=== PATIENT | male | born 1985 | race Two or more races ===

== ENCOUNTER 2023-11-27 08:11 | Outpatient (AMB) | payer OTHER, SELFPAY ==
--- NOTE | 2023-11-27 08:12 | MHC.OFFWIV ---
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 Reports that symptoms started 2 days ago. He has been using OTC remedies with some relief. Denies any sick contact. Denies any chronic medical conditions and denies taking medications. Review of Systems Const All systems reviewed & are unremarkable except as noted in HPI and below Physical Exam Vital Signs: Last Vital Signs Temp 99.1 F 11/27/23 08:14 Pulse 118 H 11/27/23 08:14 BP 110/88 11/27/23 08:14 Pulse Ox 96 11/27/23 08:14 Oxygen Delivery Method Room Air 11/27/23 08:14 BMI result Body Mass Index 33.6 Const General: no acute distress and ill appearing Orientation/consciousness: patient oriented x3 HEENT Head: Yes normocephalic Ears: external ears normal and TM's normal bilaterally General nose exam: No nasal discharge present and Abnormal mucous membranes and turbinates present pale Face and sinus: Yes sinuses nontender Mouth: moist mucous membranes Throat: Yes posterior oropharynx normal Resp Effort & Inspection: normal respiratory effort, able to speak in complete sentences and Actively coughing Auscultation: clear to auscultation bilaterally, no crackles, no rales, no rhonchi and no wheezes Cardio Rate: regular rate Rhythm: regular rhythm Neuro General: patient oriented x3 Assessment & Plan Assessment & Plan (1) Upper respiratory infection: Code(s): J06.9 - Acute upper respiratory infection, unspecified Qualifiers: URI type: acute nasopharyngitis (common cold) Qualified Code(s): J00 - Acute nasopharyngitis [common cold] Plan: - Rest and hydrate well with warm fluids - OTC cough/cold remedies - Acetaminophen for pain relief - RTC if not better. (2) Cough in adult: Code(s): R05.9 - Cough, unspecified Plan: - Rest and hydrate well with warm fluids - OTC cough/cold remedies - Acetaminophen for pain relief - RTC if not better. Plan - Rest and hydrate well with warm fluids - OTC cough/cold remedies - Acetaminophen for pain relief - RTC if not better. Orders: Orders SARS-CoV2/FLU/RSV Today R09.89 - Other specified symptoms and signs involving the circulatory and respiratory systems Medications: New acetaminophen 1,000 mg (2 x 500 mg) PO Q6H PRN 30 caps 0RF fever J00 - Acute nasopharyngitis [common cold] [id number] 5-10-100 mg/5 mL (Adult Robitussin Peak Cold M-S) 10 mL PO Q4H PRN 237 mL 0RF cold symptoms J00 - Acute nasopharyngitis [common cold], R05.9 - Cough, unspecified Coding Level of Care Code New Pt Level 3 (49142) Diagnoses Acute nasopharyngitis J00 URI type: acute nasopharyngitis (common cold) Cough in adult R05.9 Time Spent (min) 15
[2023-11-27 08:14] VITALS: BP 110/88; PULSE 118; TEMP 37.3; O2SAT 96; BMI 33.6
== END 2023-11-27 09:55 | disposition home or self-care (01) ==
PROVIDERS: PCP Hospitalist; Visit Provider Nurse Practitioner Family
DX: J00 Acute nasopharyngitis [common cold] (principal); R05.9 Cough, unspecified
CPT/HCPCS: 99203

== ENCOUNTER 2023-11-27 08:26 | Outpatient (REF) | payer OTHER, SELFPAY ==
[2023-11-27 13:36] LABS: Influenza A PCR POSITIVE (Negative); Influenza B PCR NEGATIVE (Negative); Resp Syncy Virus RNA Qual PCR NEGATIVE (Negative); SARS COV2 PCR INHOUSE NEGATIVE (Negative)
== END 2023-11-27 08:27 | disposition home or self-care (01) ==
LOC: HO.LAB 08:26
PROVIDERS: Visit Provider Nurse Practitioner Family
DX: R09.89 Other specified symptoms and signs involving the circulatory and respiratory systems (principal)
CPT/HCPCS: 0241U

== ENCOUNTER 2024-03-13 13:29 | Outpatient (AMB) | payer OTHER, SELFPAY ==
--- OUTSIDE RECORDS SUMMARY | 2024-03-13 13:30 | XMS_ITS | Continuity of Care Document ---
Author Organization [facility] ter Address [address] [place] [address]- Care Team Providers Care Hired Worker Name Role Phone Renuka Preston MD Primary Care Physician [phone] Encounter [facility] [place] Date(s): 01/09/21 - 03/15/[address] [address] Attending Physician: Spencer Rogers MD Admitting Physician: Spencer Rogers MD Referring Physician: Spencer Rogers MD Allergies, Adverse Reactions, Alerts Substance Reaction Severity Status NKA Active Immunizations Given and Recorded Vaccine Date Status Refusal Reason pneumococcal 23-valent vaccine 12/20/11 Given tetanus-diphtheria toxoids (Td) 12/19/11 Given Medications diclofenac sodium 50 mg oral delayed release tablet 1 tablet = 50 mg, By Mouth, 3 times a day, with food take x 10-14 days even if no pain, # 90 tablet, 1 Refills, Maintenance, 10/11/20 13:16:00 EST, [facility]/pharmacy #[id number], Partial fill upon patient request if the prescription is for a schedule II opioid... Start Date: 10/11/20 Stop Date: 12/10/20 Status: Ordered gabapentin 300 mg oral capsule See Instructions, 1 CAP PO HS X 3 DAYS, THEN 1 CAP BID X 3 DAYS, THEN 1 capsule By Mouth 3 times a day THEREAFTER, # 90 capsule, Refills 0, Tot. Refills 0, Maintenance, 11/30/20 11:11:00 EDT, Instructions Replace Required Details, Route to Pharmacy El... Start Date: 11/30/20 Status: Ordered Problem List Condition Effective Dates Status Health Status Inform ant Multiple fractures of ribs(Confirmed) 01/25/12 Active
--- OUTSIDE RECORDS SUMMARY | 2024-03-13 13:30 | XMS_ITS | Continuity of Care Document ---
Author Organization [facility] Address [address] [place] [address]- Care Team Providers Care Accountant Assistant Name Role Phone Renuka Preston MD Primary Care Physician [place] [facility] [place]17[place] - 12/17/[address] [address] Attending Physician: Alma Rosa Burnham Admitting Physician: Alma Rosa Burnham Referring Physician: AdmtrAlma Rosa Allergies, Adverse Reactions, Alerts Substance Reaction Severity [...] tablet, 1 Refills, Maintenance, 10/11/20 13:16:00 EST, [facility]/pharmacy #[id number], Partial fill upon patient request [...]
--- OUTSIDE RECORDS SUMMARY | 2024-03-13 13:30 | XMS_ITS | Continuity of Care Document ---
Author Organization [facility] Address [address] [place] [address]- Care Team Providers Care Manager Hris Name Role Phone Renuka Preston MD Primary Care Physician [place] [facility] [place] Date(s): 02/09/21 - 03/11/21 [facility] [address] [place] [address] Attending Physician: Alma Rosa Burnham Admitting Physician: Alma Rosa Burnham Referring Physician: Alma Rosa Burnham Allergies, Adverse Reactions, Alerts Substance Reaction Severity [...] tablet, 1 Refills, Maintenance, 10/11/20 13:16:00 EST, [facility]/pharmacy #[id number], Partial fill upon patient request if [...]
--- OUTSIDE RECORDS SUMMARY | 2024-03-13 13:30 | XMS_ITS | Continuity of Care Document ---
Author Organization [facility] Address [address] [place] [address]- Care Team Providers Care Ticker Maintainer Name Role Phone Renuka Preston MD Primary Care Physician [phone] Encounter [facility] [place] Date(s): 04/14/20 - 05/14/20 [facility] [address] [place] [address]- [facility] Allergies, Adverse Reactions, Alerts Substance Reaction Severity Status NKA Active Immunizations Given and Recorded Vaccine Date Status Refusal Reason pneumococcal 23-valent vaccine 12/20/11 Given tetanus-diphtheria toxoids (Td) 12/19/11 Given Medications acetaminophen 650 mg oral tablet 1 tablet = 650 mg, By Mouth, Every 4 hours, # 84 tablet, 0 Refills, Maintenance, Tablet Start Date: 12/23/11 Stop Date: 01/06/12 Status: Ordered Compression Stockings See Instructions, # 2 each, Maintenance, surgical, thigh high length 30/40 mm Hg, 04/14/20 13:44:00EDT, Supply Start Date: 04/14/20 Status: Ordered docusate sodium 100 mg oral capsule 1 capsule = 100 mg, By Mouth, 2 times a day, # 60 capsule, 0 Refills, Maintenance, Capsule Start Date: 12/23/11 Status: Ordered gabapentin 600 mg oral tablet 1 tablet = 600 mg, By Mouth, 3 times a day, # 270 tablet, 1 Refills, Maintenance, Tablet Start Date: 02/21/12 Status: Ordered ibuprofen 600 mg oral tablet 1 tablet = 600 mg, By Mouth, 4 times a day, PRN Pain, # 40 tablet, 0 Refills, Maintenance Start Date: 01/15/12 Status: Ordered Problem List Condition Effective Dates Status Health Status Inform ant Multiple fractures of ribs(Confirmed) 01/25/12 Active
--- OUTSIDE RECORDS SUMMARY | 2024-03-13 13:30 | XMS_ITS | Continuity of Care Document ---
Author Organization [facility] Address [address] [place] [address]- Care Team Providers Care Channel Process Plant Operator Name Role Phone Renuka Preston MD Primary Care Physician [phone] [place] [facility] [place] Date(s): 11/30/20 - 12/30/20 [facility] [address] [place] [address]- Allergies, Adverse Reactions, Alerts Substance Reaction Severity [...] tablet, 1 Refills, Maintenance, 10/11/20 13:16:00 EST, [facility]/pharmacy #[id number], Partial fill upon patient [...]
--- OUTSIDE RECORDS SUMMARY | 2024-03-13 13:30 | XMS_ITS | Continuity of Care Document ---
Author Organization [facility] Address [address] [place] [address]- Care Team Providers Care Road Roller Operator Name Role Phone Renuka Preston MD Primary Care Physician [place] [facility] [place]): [place]11[place]20 - 11/10/20 [facility] [address] [place] [address]- Attending Physician: Alma Rosa Burnham Admitting Physician: Alma Rosa Burnham Referring Physician: AdmtrAlma Rosa Allergies, Adverse Reactions, Alerts Substance Reaction Severity Status NKA Active Immunizations Given and Recorded Vaccine Date Status Refusal Reason pneumococcal 23-valent vaccine 12/20/11 Given tetanus-diphtheria toxoids (Td) 12/19/11 Given Medications cyclobenzaprine 10 mg oral tablet 10 mg, 1, tablet, By Mouth, 3 times a day, for 21 days, # 63 tablet, Refills 1, Tot. Refills 1, Acute 11/22/20 13:18:00 EDT, 10/11/20 13:18:00 EST, Route to Pharmacy Electronically, [facility]/pharmacy #[id number], Partial fill upon patient request if the prescrip... Start Date: 10/11/20 Stop Date: 11/22/20 Status: Ordered diclofenac sodium 50 mg oral delayed release tablet 1 tablet = 50 mg, By Mouth, 3 times a day, with food take x 10-14 days even if no pain, # 90 tablet, 1 Refills, Maintenance, 10/11/20 13:16:00 EST, [facility]pharmacy [id number], Partial fill upon patient request if the prescription is for a schedule II opioid... Start Date: 10/11/20 Stop Date: 12/10/20 Status: Ordered Problem List Condition Effective Dates Status Health Status Inform ant Multiple fractures of ribs(Confirmed) 01/25/12 Active
--- OUTSIDE RECORDS SUMMARY | 2024-03-13 13:30 | XMS_ITS | Continuity of Care Document ---
Author Organization [facility] ter Address [address] [place] [address]- Care Team Providers Care Financial Administrative Assistant Name Role Phone Renuka Preston MD Primary Care Physician [place] [facility] [place]16/[place] - 09/16/[address] [address]- Discharge Disposition: A-D/C Walkout Attending Physician: Not on Staff, Attending MD Admitting Physician: Not on Staff, Admitting MD Referring Physician: Not on Staff, Referring MD Allergies, Adverse Reactions, Alerts Substance Reaction Severity Status NKA Active Immunizations Given and Recorded Vaccine Date Status Refusal Reason pneumococcal 23-valent vaccine 12/20/11 Given tetanus-diphtheria toxoids (Td) 12/19/11 Given Medications No Known Medications Problem List Condition Effective Dates Status Health Status Inform ant Multiple fractures of ribs(Confirmed) 01/25/12 Active Vital Signs Most recent to oldest [Reference Range]: 1 Weight 109.0 kg (09/16/20 2:11 PM) Oxygen Saturation [94-100 %] 98 % (09/16/20 2:11 PM) Pulse Rate [55-90 bpm] 87 bpm (09/16/20 2:11 PM) Blood Pressure [90-138/55-84 mm Hg] 123/ 83mm Hg (09/16/20 2:11 PM) Respiratory Rate [16-30 br/min] 17 br/mi n (09/16/20 2:11 PM) Temperature [96.8-100.4 DegF] 98.5 DegF (09/16/20 2:11 PM) Mode of Delivery (Oxygen) Room air (09/16/20 2:11 PM) Blood pressure sites Arm, left (09/16/20 2:11 PM) Temperature Route Oral (09/16/20 2:11 PM) Dry Weight 109.0 kg (09/16/20 2:11 PM) Weight Obtained Via Patient/family state d (09/16/20 2:11 PM) Dry Weight Obtained Via Patient/family s tated (09/16/20 2:11 PM)
--- OUTSIDE RECORDS SUMMARY | 2024-03-13 13:30 | XMS_ITS | Continuity of Care Document ---
Author Organization [facility] Address Unknown Care Team Providers Care Clinical Trial Coordinator Name Role Phone Renuka Preston MD Primary Care Physician Encounter [facility] Date(s): 04/17/21 - 05/17/21 [facility] Allergies, Adverse Reactions, Alerts Substance Reaction Severity Status NKA Active Immunizations Given and Recorded Vaccine Date Status Refusal Reason pneumococcal 23-valent vaccine 12/20/11 Given tetanus-diphtheria toxoids (Td) 12/19/11 Given Problem List Condition Effective Dates Status Health Status Inform ant Multiple fractures of ribs(Confirmed) 01/25/12 Active
--- OUTSIDE RECORDS SUMMARY | 2024-03-13 13:30 | XMS_ITS | Continuity of Care Document ---
Author Organization [facility] Address [address] [place] [address]- Care Team Providers Care Hotel Superintendent Name Role Phone Renuka Preston MD Primary Care Physician [place] [facility] [place] Date(s): 01/12/21 - 02/11/21 [facility] [address] [place] [address]- Encounter Diagnosis Lumbosacral radiculopathy at L4(Discharge Diagnosis) - 01/17/21 Allergies, Adverse Reactions, Alerts Substance Reaction Severity [...] tablet, 1 Refills, Maintenance, 10/11/20 13:16:00 EST, [facility]/pharmacy #[id number], Partial fill upon patient [...] ant Multiple fractures of ribs(Confirmed) 01/25/12 Active Diagnosis Diagnosis Type Effective Dates Health Status Clinical Service Informant Lumbosacral radiculopathy at L4 Discharge Diagnosis 01/17/21
--- OUTSIDE RECORDS SUMMARY | 2024-03-13 13:30 | XMS_ITS | Continuity of Care Document ---
Author Organization [facility] Address [address] [address]- Care Team Providers Care Bookmobile Clerk Name Role Phone Renuka Perston MD Primary Care Physician [phone] Encounter [facility] Date(s): 06/22/22 - 06/29/22 [facility] [address] [place] [address]- Attending Physician: Spencer Rogers MD Referring Physician: Renuka Preston MD Allergies, Adverse Reactions, Alerts No Known Allergies Immunizations Given and Recorded Vaccine Date Status Refusal Reason pneumococcal 23-valent vaccine 12/20/11 Given tetanus-diphtheria toxoids (Td) 12/19/11 Given Problem List Condition Confirmation Course Effective Dates Status Health St atus Informant Multiple fractures of ribs Confirmed 01/25/12 Active Obese class I Confirmed Active Vital Signs Most recent to oldest [Reference Range]: 1 Height 184.00 cm (06/22/22 2:59 PM) Weight 110.8 kg (06/22/22 2:59 PM) Oxygen Saturation [94-100 %] 99 % (06/22/22 2:59 PM) Pulse Rate [55-90 bpm] 83 bpm (06/22/22 2:59 PM) Body Mass Index [18.5-24.99 kg/m2] 32.73 kg/m2 *>HHI* (06/22/22 2:59 PM) Blood Pressure [90-138/55-84 mm Hg] 114/ 75mm Hg (06/22/22 2:59 PM) Blood pressure sites Arm, left (06/22/22 2:59 PM) Patient Care team information Personnel Name: Renuka Preston MD Address: Address: [address] [place], [place] [address]
--- OUTSIDE RECORDS SUMMARY | 2024-03-13 13:30 | XMS_ITS | Continuity of Care Document ---
Author Organization [facility] Address [address] [facility], [address] d Floor, [address] [place] [address]- Care Team Providers Care Emergency Dept Tech Name Role Phone Renuka Preston MD Primary Care Physician [phone] Encounter [facility] [place] Date(s): 01/25/21 - 02/24/21 [facility] [address], [address], [address] [place] [address]- Attending Physician: Alma Rosa Burnham Admitting Physician: [...] tablet, 1 Refills, Maintenance, 10/11/20 13:16:00 EST, [facility]/pharmacy #[id number], Partial fill upon patient request if [...]
--- OUTSIDE RECORDS SUMMARY | 2024-03-13 13:30 | XMS_ITS | Continuity of Care Document ---
Author Organization [facility] Address [address] [place] [address]- Care Team Providers Care Lead Pastor Name Role Phone Renuka Preston MD Primary Care Physician [place] [facility] [place] [id number] Date(s): 01/17/21 - 01/24/21 [facility] [address] [place] [address]- Attending Physician: Spencer Rogers MD Referring Physician: Renuka Preston MD Allergies, Adverse Reactions, Alerts Substance Reaction [...]
--- OUTSIDE RECORDS SUMMARY | 2024-03-13 13:30 | XMS_ITS | Continuity of Care Document ---
Author Organization [facility] Address [address] [place] [address]- Care Team Providers Care Dietary Assistant Name Role Phone Renuka Preston MD Primary Care Physician En[place] [facility] [place] Date(s): 12/12/20 - 01/11/21 [facility] [address] [place] [address]- Allergies, Adverse Reactions, Alerts Substance Reaction Severity [...] tablet, 1 Refills, Maintenance, 10/11/20 13:16:00 EST, [facility]/pharmacy #[id number], Partial fill upon patient request if [...]
--- OUTSIDE RECORDS SUMMARY | 2024-03-13 13:30 | XMS_ITS | Continuity of Care Document ---
Author Organization [facility] ter Address [address] [place] [address]- Care Team Providers Care C Consultant Name Role Phone Mohan CHIN, Renuka Chavarria Primary Care Physician [phone] [place] [facility] [place] Date(s): 11/25/20 - 02/08/[address] [address] Attending Physician: Spencer Rogers MD [...] tablet, 1 Refills, Maintenance, 10/11/20 13:16:00 EST, [facility]/pharmacy #[id number], Partial fill upon patient request [...]
--- OUTSIDE RECORDS SUMMARY | 2024-03-13 13:30 | XMS_ITS | Continuity of Care Document ---
Author Organization [facility] Address [address] [address]- Care Team Providers Care Delivery Supervisor Name Role Phone Renuka Preston MD Primary Care Physician En[place] [facility] [place] Date(s): 06/22/22 - 07/22/22 [facility] [address] [place] [address]- Attending Physician: Alma Rosa Burnham Admitting Physician: Alma Rosa Burnham Referring Physician: AdmtrAlma Rosa Allergies, Adverse Reactions, Alerts No Known Allergies Immunizations Given and Recorded Vaccine Date Status Refusal Reason pneumococcal 23-valent vaccine 12/20/11 Given tetanus-diphtheria toxoids (Td) 12/19/11 Given Problem List Condition Confirmation Course Effective Dates Status Health St atus Informant Multiple fractures of ribs Confirmed 01/25/12 Active Obese class I Confirmed Active Patient Care team information Care Team Personnel Name: Renuka Preston MD Position: [facility] Physician (General Medicine) Member Role: PCP Address: Address: [address] [place] [address]- Care Team Related Persons Name: RODRIGUE BALLARD Address: home [address] [place] [address]
--- OUTSIDE RECORDS SUMMARY | 2024-03-13 13:30 | XMS_ITS | Continuity of Care Document ---
Author Organization [facility] Address [address] [place] [address]- Care Team Providers Care Parcel Post Carrier Name Role Phone Renuka Preston MD Primary Care Physician [phone] [place] [facility] [place] 08/25/20 - 09/24/20 [facility] [address] [place], [place] [address] Attending Physician: Alma Rosa Burnham Admitting Physician: [...]
--- OUTSIDE RECORDS SUMMARY | 2024-03-13 13:30 | XMS_ITS | Continuity of Care Document ---
Author Organization [facility] Address [address] [place] [address]- Care Team Providers Care Pet Ambassador Name Role Phone Renuka Preston MD Primary Care Physician [phone] Encounter [facility] Date(s): 04/17/21 - 05/17/21 [facility] [address] [place] [address]- Allergies, Adverse Reactions, Alerts Substance Reaction Severity Status NKA Active Immunizations Given and Recorded Vaccine Date Status Refusal Reason pneumococcal 23-valent vaccine 12/20/11 Given tetanus-diphtheria toxoids (Td) 12/19/11 Given Problem List Condition Effective Dates Status Health Status Inform ant Multiple fractures of ribs(Confirmed) 01/25/12 Active
--- OUTSIDE RECORDS SUMMARY | 2024-03-13 13:30 | XMS_ITS | Continuity of Care Document ---
Author Organization [facility] Address [address] [place] [address]- Care Team Providers Care Tipple Operator Name Role Phone Renuka Preston MD Primary Care Physician Encounter [facility] Date(s): 04/27/21 - 05/27/21 [facility] [address] [place] [address]- Attending Physician: Alma Rosa Burnham Admitting Physician: [...]
--- OUTSIDE RECORDS SUMMARY | 2024-03-13 13:30 | XMS_ITS | Continuity of Care Document ---
Author Organization [facility] Address [address] [place] [address]- Care Team Providers Care Open Hearth Furnace Operator Helper Name Role Phone Renuka Preston MD Primary Care Physician Encounter [facility] [place] Date(s): 10/17/20 - 11/16/20 [facility] [address] [place] [address]- Allergies, Adverse Reactions, Alerts Substance Reaction Severity [...] 10/11/20 13:18:00 EST, Route to Pharmacy Electronically, [facility]/pharmacy #[id number], Partial fill upon patient request if [...]
--- OUTSIDE RECORDS SUMMARY | 2024-03-13 13:30 | XMS_ITS | Continuity of Care Document ---
Author Organization [facility] [place] [facility] Address [address] [place] [address]- Care Team Providers Care Epidemiology Intern Name Role Phone Renuka Preston MD Primary Care Physician En[place] [facility] [place] [id number] Date(s): 01/17/21 - 02/16/21 [facility] [address] [place] [address]- Attending Physician: Alma Rosa Burnham Admitting Physician: [...] tablet, 1 Refills, Maintenance, 10/11/20 13:16:00 EST, [facility]/pharmacy #[id number], Partial fill upon patient request [...]
--- OUTSIDE RECORDS SUMMARY | 2024-03-13 13:30 | XMS_ITS | Continuity of Care Document ---
Author Organization [facility] Address [address] [place] [address]- Care Team Providers Care Foot Doctor Name Role Phone Renuka Preston MD Primary Care Physician [phone] Encounter [facility] [place] Date(s): 01/06/21 - 02/05/21 [facility] [address] [place] [address]- Allergies, Adverse Reactions, Alerts Substance Reaction Severity [...] tablet, 1 Refills, Maintenance, 10/11/20 13:16:00 EST, [facility]/pharmacy #[id number], Partial fill upon patient request if [...]
--- OUTSIDE RECORDS SUMMARY | 2024-03-13 13:30 | XMS_ITS | Continuity of Care Document ---
Author Organization [facility] Address [address] [place] [address]- Care Team Providers Care Extractor Operator Helper Name Role Phone Renuka Preston MD Primary Care Physician [place] [facility] [place]/14/20 - 04/21/20 [facility] [address] [place] [address]- [facility] Attending Physician: Jone Vernon MD Admitting Physician: Jone Vernon MD Referring Physician: Renuka Preston MD Allergies, [...] oldest [Reference Range]: 1 Height 184.00 cm (04/14/20 11:25 AM) Weight 107.5 kg (04/14/20 11:25 AM) Oxygen Saturation [94-100 %] 97 % (04/14/20 11:25 AM) Pulse Rate [55-90 bpm] 88 bpm (04/14/20 11:25 AM) Body Mass Index [18.5-24.99] 31.75 *>HHI* (04/14/20 11:25 AM) Blood Pressure [90-138/55-84 mm Hg] 130/ 82mm Hg (04/14/20 11:25 AM) Mode of Delivery (Oxygen) Room air (04/14/20 11:25 AM) Blood pressure sites Arm, right (04/14/20 11:25 AM) Weight Obtained Via Patient/family state d (04/14/20 11:25 AM)
--- OUTSIDE RECORDS SUMMARY | 2024-03-13 13:30 | XMS_ITS | Continuity of Care Document ---
Author Organization [facility] Address [address] [address]- Care Team Providers Care Test Preparer Name Role Phone Renuka Preston MD Primary Care Physician Encounter [facility] Date(s): 06/11/22 - 07/11/22 [facility] [address] [place] [id number] Allergies, Adverse Reactions, Alerts No Known Allergies Immunizations Given and Recorded Vaccine Date Status Refusal Reason pneumococcal 23-valent vaccine 12/20/11 Given tetanus-diphtheria toxoids (Td) 12/19/11 Given Problem List Condition Confirmation Course Effective Dates Status Health St atus Informant Multiple fractures of ribs Confirmed 01/25/12 Active Obese class I Confirmed Active Patient Care team information Personnel Name: Renuka Preston MD Address: Address: [address] [place] [address]
--- OUTSIDE RECORDS SUMMARY | 2024-03-13 13:30 | XMS_ITS | Continuity of Care Document ---
Author Organization [facility] Address [address] [place] [address]- Care Team Providers Care Property And Casualty Insurance Agent Name Role Phone Renuka Preston MD Primary Care Physician Encounter [facility] [place] Date(s): 12/26/20 - 01/25/21 [facility] [address] [place] [address]- Allergies, Adverse Reactions, Alerts Substance Reaction Severity [...] tablet, 1 Refills, Maintenance, 10/11/20 13:16:00 EST, [facility]/pharmacy #[id number], Partial fill upon patient request [...]
--- OUTSIDE RECORDS SUMMARY | 2024-03-13 13:30 | XMS_ITS | Continuity of Care Document ---
Author Organization [facility] Address [address] [place] [address]- Care Team Providers Care Sergeant Of Officers Name Role Phone Renuka Preston MD Primary Care Physician [place] [facility] [place] 09/24/20 [facility] [address] [place] [address]- Attending Physician: Jone Vernon MD Admitting Physician: [...]
--- OUTSIDE RECORDS SUMMARY | 2024-03-13 13:30 | XMS_ITS | Continuity of Care Document ---
Author Organization [facility] Address [address] [place] [address]- Care Team Providers Care Certified Medicine Aide Name Role Phone Renuka Preston MD Primary Care Physician [phone] Encounter [facility] [place] Date(s): 08/11/20 - 09/10/20 [facility] [address] [place], [place] [address] Attending Physician: Alma Rosa Burnham Admitting [...]
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
--- OUTSIDE RECORDS SUMMARY | 2024-03-13 13:31 | XMS_ITS | Continuity of Care Document ---
Author Organization [facility] Address [address] [place] [address]- Care Team Providers Care Juice Packaging Machines Setter Name Role Phone Renuka Preston MD Primary Care Physician En[place] [facility] [place] Date(s): 01/06/21 - 02/05/21 [facility] [address] [place] [address]- Allergies, Adverse Reactions, Alerts Substance Reaction Severity [...] tablet, 1 Refills, Maintenance, 10/11/20 13:16:00 EST, [facility]/pharmacy #[id number], Partial fill upon patient [...]
--- OUTSIDE RECORDS SUMMARY | 2024-03-13 13:31 | XMS_ITS | Continuity of Care Document ---
Author Organization [facility] Address [address] [place] [address]- Care Team Providers Care Education Faculty Member Name Role Phone Renuka Preston MD Primary Care Physician [phone] [place] [facility] [place](s): 10/11/20 - 10/18/20 [facility] [address] [place] [address]- Encounter Diagnosis Low back pain with left-sided sciatica(Discharge Diagnosis) - 10/11/20 Attending Physician: Spencer Rogers MD Referring Physician: [...] 10/11/20 13:18:00 EST, Route to Pharmacy Electronically, [facility]/pharmacy #[id number], Partial fill upon [...] Diagnosis Diagnosis Type Effective Dates Health Status Cl inical Service Informant Low back pain with left-sided sciatica Discharge Diagnosis 10/11/20
[2024-03-13 13:35] VITALS: BP 122/80; PULSE 96; TEMP 37.1; O2SAT 97
--- NOTE | 2024-03-13 13:35 | AM.OFFWIN_ITS ---
Intake Vital Signs 03/13/24 13:35 Height 5 ft 11 in BP 122/80 Blood Pressure Location Rt brachial Position Sitting Pulse 96 Pulse Source Pulse Oximeter Temp 98.8 F Temp Source Oral Pulse Oximetry (%) 97 Oxygen Delivery Method Room Air Intake Visit Reasons: EP severe back pain Intake Note: pt is here for severe back pain Patient Tobacco Use Status: Never used Tobacco Allergies No Known Allergies Allergy (Verified 03/13/24 13:35) Do you need a note to return to daycare/school/sports/work: No HPI HPI Comments History of Present Illness Details 38 y/o male patient who presents to walk in clinic with c/o Low back pain for 6 days now. Pt has h/o Chronic back issues for years now, and currently receives Steroid injections with his Service Station Cashier. He last received his Steroid injection ~ 1 year ago. He has an appointment next Saturday. Denies bowel or bladder problems. PFSH Social History Patient Tobacco Use Status: Never used Tobacco Physical Exam Vital Signs: Last Vital Signs Temp 98.8 F 03/13/24 13:35 Pulse 96 03/13/24 13:35 BP 122/80 03/13/24 13:35 Pulse Ox 97 03/13/24 13:35 Oxygen Delivery Method Room Air 03/13/24 13:35 Const General: no acute distress; No comfortable Nutritional Appearance: overweight Orientation/consciousness: patient oriented x3 Back/Spine/Pelvis Back: back tenderness Thoracic/Lumbar Spine: pain with thoraco-lumbar ROM, thoraco-lumbar ROM limited with forward flexion, with lateral flexion to the right, with lateral flexion to the left, with rotation to the right and with rotation to the left and lumbar spinal tenderness Sacrum: tenderness on the left Coccyx: Coccyx tenderness present on direct palpation Neuro General: patient oriented x3, gait normal (Walks with a limp due to pain) and moves all extremities Psych Speech and movement: Normal speech and movement present Assessment & Plan Assessment & Plan (1) Low back pain: Code(s): M54.50 - Low back pain, unspecified Qualifiers: Chronicity: acute Back pain laterality: midline Sciatica presence: wit h sciatica Sciatica laterality: sciatica of left side Qualified Code(s): M54.42 - Lumbago with sciatica, left side Plan: Ice/Hot Rest (gave a work note for 7-10 days) F/u with Service Station Cashier as scheduled. Medications: New metaxalone 800 mg PO TID 15 tabs 0RF M54.42 - Lumbago with sciatica, left side gabapentin 100 mg PO TID 60 caps 0RF M54.42 - Lumbago with sciatica, left side prednisone 50 mg PO DAILY 10 days 10 tabs 0RF M54.42 - Lumbago with sciatica, left side acetaminophen 1,000 mg (2 x 500 mg) PO Q6H PRN 30 caps 0RF pain (scale score 7- 10) M54.42 - Lumbago with sciatica, left side tramadol 50 mg PO Q8H PRN 10 tabs 0RF pain M54.42 - Lumbago with sciatica, left side Coding Level of Care Code Est Pt Level 3 (77493) Diagnoses Acute midline low back pain with left-sided sciatica M54.42 Chronicity: acute Back pain laterality: midline Sciatica presence: with sciatica Sciatica laterality: sciatica of left side Time Spent (min) 15
== END 2024-03-13 14:35 | disposition home or self-care (01) ==
PROVIDERS: PCP Hospitalist; Visit Provider Nurse Practitioner Family
DX: M54.42 Lumbago with sciatica, left side (principal)
CPT/HCPCS: 99213